=== PATIENT | male | born 1935 | race Caucasian/White ===

== ENCOUNTER 2023-05-24 09:48 | Emergency (ER) | payer OTHER ==
[2023-05-24 10:09] VITALS: BP 165/70; PULSE 100; RESP 17; TEMP 98; BMI 25.7
== END 2023-05-24 10:17 | disposition home or self-care (01) ==
LOC: FER 09:48
DX: H57.89 Other specified disorders of eye and adnexa (principal); H57.11 Ocular pain, right eye; H53.8 Other visual disturbances; H10.211 Acute toxic conjunctivitis, right eye
CPT/HCPCS: 99283-25

== ENCOUNTER 2023-08-13 14:14 | Observation (INO) | payer OTHER ==
[2023-08-13 14:51] VITALS: BMI 28.6
[2023-08-13 16:55] LABS: BASO % 0.7 % (0-2.0); EOS % 0.4 % (0-4.5); HEMATOCRIT 38.2 % (35.4-49); HEMOGLOBIN 12.3 GM/dL (11.7-16.9); LYMPH % 12.4 % (8-40); MCH 23.9 pg (25.7-33.7); MCHC 32.2 g/dl (32.0-35.9); MEAN CELL VOLUME 74.3 fl (80-96); MEAN PLT VOLUME 6.5 fl (7.5-11.1); MONO % 8.7 % (3.8-10.2); NEUT % 77.8 % (42.8-82.8); PLATELET COUNT 291 10^3/uL (134-434); RBC 5.14 M/mm3 (4.00-5.60); WHITE BLOOD COUNT 4.4 K/mm3 (4.0-10.0)
[2023-08-13 17:20] LABS: POTASSIUM 5.1 mmol/L (3.5-5.1)
[2023-08-13 17:22] LABS: CALCIUM 9.5 mg/dL (8.5-10.1); MAGNESIUM 1.9 mg/dL (1.8-2.4)
[2023-08-13 17:23] LABS: BLOOD UREA NITROGEN 20.4 mg/dL (7-18)
[2023-08-13 17:25] LABS: CREATININE 1.4 mg/dL (0.55-1.3)
[2023-08-13 17:27] LABS: TOT PROT 7.3 g/dl (6.4-8.2)
[2023-08-13 18:32] LABS: PH,URINE 6.5 (5.0-8.0); URINE APPEARANCE CLEAR; URINE BILIRUBIN NEGATIVE (NEGATIVE); URINE COLOR YELLOW; URINE GLUCOSE (UA) NEGATIVE (NEGATIVE); URINE KETONE 1+ (NEGATIVE); URINE LEUK ESTERASE NEGATIVE (NEGATIVE); URINE NITRITE NEGATIVE (NEGATIVE); URINE PROTEIN NEGATIVE (NEGATIVE); URINE UROBILINOGEN 0.2 mg/dL (0.2-1.0)
[2023-08-13] MEDS ORDERED: SODIUM CHLORIDE 0.9% 500 ML INFUS.BAG IV ONE (19:16)
[2023-08-13] MEDS: INSULIN (NOVOLOG) ASPART 100 UNITS/ML 10ML VIAL SQ SCH (23:12)
[2023-08-14 07:50] LABS: BASO % 0.7 % (0-2.0); EOS % 2.1 % (0-4.5); HEMATOCRIT 36.1 % (35.4-49); HEMOGLOBIN 11.7 GM/dL (11.7-16.9); LYMPH % 27.4 % (8-40); MCH 24.1 pg (25.7-33.7); MCHC 32.4 g/dl (32.0-35.9); MEAN CELL VOLUME 74.4 fl (80-96); MEAN PLT VOLUME 6.8 fl (7.5-11.1); MONO % 16.4 % (3.8-10.2); NEUT % 53.4 % (42.8-82.8); PLATELET COUNT 297 10^3/uL (134-434); RBC 4.85 M/mm3 (4.00-5.60); RDW 14.2 % (11.9-15.9); WHITE BLOOD COUNT 4.7 K/mm3 (4.0-10.0)
[2023-08-14 07:53] LABS: CALCIUM 9.4 mg/dL (8.5-10.1)
[2023-08-14 07:54] LABS: ALBUMIN 3.6 g/dl (3.4-5.0); BLOOD UREA NITROGEN 17.8 mg/dL (7-18); MAGNESIUM 1.9 mg/dL (1.8-2.4)
[2023-08-14 07:57] LABS: CREATININE 1.2 mg/dL (0.55-1.3); PHOSPHOROUS 3.6 mg/dL (2.5-4.9)
[2023-08-14 07:58] LABS: BILIRUBIN,TOTAL 1.1 mg/dL (0.2-1); TOT PROT 6.6 g/dl (6.4-8.2)
[2023-08-14 08:02] LABS: N-TERMINAL BNP 190.1 pg/ml (5-450)
[2023-08-14] MEDS ORDERED: TAMSULOSIN HCL 0.4 MG CAP ONE (08:10)
[2023-08-14] MEDS: INSULIN (NOVOLOG) ASPART 100 UNITS/ML 10ML VIAL SQ SCH ×2 (08:24→11:55)
[2023-08-14] MEDS ORDERED: TAMSULOSIN HCL 0.4 MG CAP PO SCH (08:30)
[2023-08-14 08:52] LABS: URINE UREA NITROGEN 361 mg/dL (350-1000)
[2023-08-14] MEDS ORDERED: TOLTERODINE TARTRATE LA 2 MG CAP.SR.24H PO SCH (10:00)
[2023-08-14] MEDS ORDERED: ENOXAPARIN NA (PORCINE) 40 MG/0.4 ML DISP.SYRIN SQ SCH (10:00)
[2023-08-14] MEDS ORDERED: amLODIPine BESYLATE 5 MG TABLET (FP) PO ONE (11:00)
[2023-08-14] MEDS ORDERED: amLODIPine BESYLATE 5 MG TABLET (FP) ONE (11:47)
[2023-08-14] MEDS ORDERED: INSULIN (NOVOLOG) ASPART 100 UNITS/ML 10ML VIAL ONE (11:47)
[2023-08-14 13:58] VITALS: PULSE 87; RESP 20; TEMP 98.2
[2023-08-14 14:04] VITALS: BP 165/74
== END 2023-08-14 14:20 | disposition home or self-care (01) ==
LOC: JER 14:14 → JERBED 18:36
PROVIDERS: ADMIT Internal Medicine; ATTEND Student in an Organized Health Care Education/Training Program
PROC: 3E023GC Introduction of Other Therapeutic Substance into Muscle, Percutaneous Approach (ICD-10-PCS; principal; 2023-08-13)
PROC: 3E013VG Introduction of Insulin into Subcutaneous Tissue, Percutaneous Approach (ICD-10-PCS; 2023-08-13)
PROC: 3E0337Z Introduction of Electrolytic and Water Balance Substance into Peripheral Vein, Percutaneous Approach (ICD-10-PCS; 2023-08-13)
DX: N17.9 Acute kidney failure, unspecified (principal); E87.5 Hyperkalemia; E87.1 Hypo-osmolality and hyponatremia; R73.03 Prediabetes; N40.0 Benign prostatic hyperplasia without lower urinary tract symptoms; N41.9 Inflammatory disease of prostate, unspecified; E03.9 Hypothyroidism, unspecified; I11.0 Hypertensive heart disease with heart failure; I50.9 Heart failure, unspecified; R60.0 Localized edema
CPT/HCPCS: 0241U-QW; 36415; 71045-TC-FY; 80053; 81003; 82436; 82570; 82962; 83735; 83880; 84100; 84133; 84156; 84300; 84443; 84540; 85025; 87086; 93005; 93010; 93970-TC; 96372; 99285-25; G0378

== ENCOUNTER 2023-09-25 14:17 | Emergency (ER) | payer OTHER ==
[2023-09-25 14:28] VITALS: TEMP 98; BMI 28.6
[2023-09-25 15:40] VITALS: BP 169/72; PULSE 82; RESP 18
[2023-09-25 16:29] LABS: BASO % 0.5 % (0-2.0); EOS % 0.7 % (0-4.5); HEMATOCRIT 38.7 % (35.4-49); HEMOGLOBIN 12.9 GM/dL (11.7-16.9); LYMPH % 11.7 % (8-40); MCH 24.6 pg (25.7-33.7); MCHC 33.3 g/dl (32.0-35.9); MEAN CELL VOLUME 73.9 fl (80-96); MONO % 9.9 % (3.8-10.2); NEUT % 77.2 % (42.8-82.8); PLATELET COUNT 314 10^3/uL (134-434); RBC 5.23 M/mm3 (4.00-5.60); RDW 14.7 % (11.9-15.9); WHITE BLOOD COUNT 5.5 K/mm3 (4.0-10.0)
[2023-09-25 17:22] LABS: POTASSIUM 5.5 mmol/L (3.5-5.1)
[2023-09-25 17:24] LABS: CALCIUM 9.9 mg/dL (8.5-10.1)
[2023-09-25 17:25] LABS: ALBUMIN 4.1 g/dl (3.4-5.0); BLOOD UREA NITROGEN 13.9 mg/dL (7-18)
[2023-09-25 17:28] LABS: CREATININE 1.2 mg/dL (0.55-1.3)
[2023-09-25 17:29] LABS: BILIRUBIN,TOTAL 0.9 mg/dL (0.2-1); TOT PROT 7.7 g/dl (6.4-8.2)
[2023-09-25 17:45] LABS: EPI CELLS 1 /uL (0-25.1); HYALINE CASTS 0 /uL (0-3.1); URINE APPEARANCE CLEAR; URINE BACTERIA 2 /uL (0-1359); URINE BILIRUBIN NEGATIVE (NEGATIVE); URINE COLOR YELLOW; URINE GLUCOSE (UA) NEGATIVE (NEGATIVE); URINE KETONE NEGATIVE (NEGATIVE); URINE LEUK ESTERASE NEGATIVE (NEGATIVE); URINE NITRITE NEGATIVE (NEGATIVE); URINE PROTEIN NEGATIVE (NEGATIVE); URINE RBC 177 /uL (0-23.9); URINE UROBILINOGEN 0.2 mg/dL (0.2-1.0); URINE WBC 1 /uL (0-25.8)
[2023-09-25] MEDS ORDERED: SODIUM ZIRCONIUM CYCLOSILICATE (LOKELMA) 10 GM PACKET ONE (18:33)
[2023-09-25] MEDS: SODIUM ZIRCONIUM CYCLOSILICATE (LOKELMA) 5 GM PACKET PO ONE (18:37)
== END 2023-09-25 18:37 | disposition home or self-care (01) ==
LOC: JER 14:17
DX: E87.1 Hypo-osmolality and hyponatremia (principal)
CPT/HCPCS: 36415; 71045-TC-FY; 80053; 81003; 83930; 83935; 84300; 85025; 93005; 93010; 99285-25